=== PATIENT | female | born 1945 ===

== ENCOUNTER 2016-09-06 15:36 | Emergency (ER) | payer MEDICAID ==
--- NOTE | 2016-09-10 13:23 | ER ---
ADMIT: 09/06/2016 RM/LOC: ER [facility] MR#: [id number] [address] [facility] [address] [place], [place] [id number] [address] [place] [address] Emergency Room Report SEX: F AGE: 71 : 1945 DATE: 09/06/2016 ADDENDUM: This patient comes to the ER because since 3 a.m. this morning, she had pain on the right side of her body, the right side of her chest, and the right side of her belly. She states it has been constant and she has not been able to eat because of it. On physical exam, I cannot reproduce any pain in her chest, and I am able to reproduce pain in the right upper quadrant in the epigastric area, and she states it goes around to her back. EKG showed a normal sinus rhythm. Her cardiac enzymes were normal. CMP and lipase were also normal. Ultrasound was negative for cholecystitis. When I went to tell the patient the results of the blood work and the ultrasound, she then told me that she is very anxious and she thinks what caused her discomfort was at 3 a.m. she heard an ambulance and it scared her. The family member that is with her tells us that she is quite anxious all the time and would like something for anxiety. I did write a prescription for 15 Xanax, and we will have them follow up with Chriss Menon. Please see my T-sheet. DIAGNOSES: 1. Abdominal pain. 2. Anxiety. SHARIF Lemons / Garett Reinoso MD / teagan JOB #: [id number] CC: Garett Reionso MD, Attending Physician Chriss Menon, Family Physician
== END 2016-09-06 18:41 | disposition home or self-care (01) ==
LOC: ER 15:36
DX: R10.11 Right upper quadrant pain (principal); R10.13 Epigastric pain; F41.9 Anxiety disorder, unspecified; Z79.899 Other long term (current) drug therapy

== ENCOUNTER 2016-09-30 15:21 | Emergency (ER) | payer MEDICAID ==
--- NOTE | 2016-10-15 08:13 | ER ---
ADMIT: 09/30/2016 RM/LOC: ER [facility] MR#: [id number] [id number] [place], [place] [id number] [address] [place] [address] Emergency Room Report SEX: F AGE: 71 : 1945 DATE: 09/30/2016 ADDENDUM: This patient comes to the ER because she is having abdominal pain. She has chronic abdominal pain. They have done tests on her for years and nobody can tell her what is the problem. She was taking omeprazole, which seemed to help. She ran out of omeprazole and all of her pain is in the epigastric area. She has a loss of appetite. No vomiting or diarrhea. On physical exam, this is an alert, 71-year-old, female. Pain is all in the epigastric area. No rebound tenderness or guarding or tenderness to percussion of either flank area. She was given a GI cocktail and 1 Buford, which took her pain completely away. I did let her know that she can get omeprazole [id number], and she should do 20 mg b.i.d. I also wrote a prescription for tramadol, and she is to follow up with her primary. Please see my T-sheet. SHARIF Lemons / Sb Rae MD / randalll JOB #: [id number] CC: Sb Rae MD, Attending Physician Chriss Menon, Family Physician
== END 2016-09-30 16:40 | disposition home or self-care (01) ==
LOC: ER 15:21
DX: K29.50 Unspecified chronic gastritis without bleeding (principal); I10 Essential (primary) hypertension; K21.9 Gastro-esophageal reflux disease without esophagitis; Z90.49 Acquired absence of other specified parts of digestive tract